=== PATIENT | male | born 1955 | race Caucasian/White ===

== ENCOUNTER 2021-03-02 13:18 | Outpatient (CLI) | payer MEDICARE, OTHER | END 2021-03-02 13:19 | disposition home or self-care (01) | LOC: CSHWCC 13:18 | PROVIDERS: ATTEND Nurse Practitioner Family | DX: L89.214 Pressure ulcer of right hip, stage 4 (principal); L89.224 Pressure ulcer of left hip, stage 4; E44.0 Moderate protein-calorie malnutrition; G82.21 Paraplegia, complete; T21.0 Burn of unspecified degree of trunk; T54.91XD Toxic effect of unspecified corrosive substance, accidental (unintentional), subsequent encounter; W01.198D Fall on same level from slipping, tripping and stumbling with subsequent striking against other object, subsequent encounter | CPT/HCPCS: 99213; G0463 ==

== ENCOUNTER 2021-07-08 09:31 | Outpatient (CLI) | payer OTHER | END 2021-07-08 09:32 | disposition home or self-care (01) | LOC: CSHWCC 09:31 | PROVIDERS: ATTEND Nurse Practitioner Family | DX: L89.154 Pressure ulcer of sacral region, stage 4 (principal); I12.9 Hypertensive chronic kidney disease with stage 1 through stage 4 chronic kidney disease, or unspecified chronic kidney disease; N18.30 Chronic kidney disease, stage 3 unspecified; D63.1 Anemia in chronic kidney disease; A41.9 Sepsis, unspecified organism; E44.0 Moderate protein-calorie malnutrition; F12.10 Cannabis abuse, uncomplicated; F32.9 Major depressive disorder, single episode, unspecified; G92 Toxic encephalopathy; R26.81 Unsteadiness on feet; W06.XXXD Fall from bed, subsequent encounter | CPT/HCPCS: 99213; G0463 ==

== ENCOUNTER 2021-09-29 09:42 | Outpatient (CLI) | payer OTHER | END 2021-09-29 09:43 | disposition home or self-care (01) | LOC: CSHWCC 09:42 | PROVIDERS: ATTEND Nurse Practitioner Family | DX: L89.224 Pressure ulcer of left hip, stage 4 (principal); L89.214 Pressure ulcer of right hip, stage 4; T54.91XD Toxic effect of unspecified corrosive substance, accidental (unintentional), subsequent encounter; E44.0 Moderate protein-calorie malnutrition; G82.21 Paraplegia, complete; W01.198D Fall on same level from slipping, tripping and stumbling with subsequent striking against other object, subsequent encounter | CPT/HCPCS: 99213; G0463 ==

== ENCOUNTER 2021-12-16 11:52 | Outpatient (CLI) | payer MEDICARE, OTHER | END 2021-12-16 11:53 | disposition home or self-care (01) | LOC: CSHWCC 11:52 | PROVIDERS: ATTEND Nurse Practitioner Family | DX: L89.214 Pressure ulcer of right hip, stage 4 (principal) ==

== ENCOUNTER 2022-03-24 12:58 | Outpatient (CLI) | payer MEDICARE, MEDICAID | END 2022-03-24 12:59 | disposition home or self-care (01) | LOC: CSHWCC 12:58 | PROVIDERS: ATTEND Nurse Practitioner Family | DX: L89.214 Pressure ulcer of right hip, stage 4 (principal) ==

== ENCOUNTER 2022-05-04 07:59 | Outpatient (CLI) | payer OTHER, MEDICAID, MEDICARE | END 2022-05-04 08:00 | disposition home or self-care (01) | LOC: CSHWCC 07:59 | PROVIDERS: ATTEND Nurse Practitioner Family | DX: L89.214 Pressure ulcer of right hip, stage 4 (principal) | CPT/HCPCS: 97139; G0463; 99213 ==

== ENCOUNTER 2022-05-13 09:09 | Outpatient (CLI) | payer OTHER, MEDICAID, MEDICARE | END 2022-05-13 09:10 | disposition home or self-care (01) | LOC: CSHWCC 09:09 | PROVIDERS: ATTEND Nurse Practitioner Family | DX: L89.214 Pressure ulcer of right hip, stage 4 (principal); S31.829D Unspecified open wound of left buttock, subsequent encounter | CPT/HCPCS: 99213; G0463 ==

== ENCOUNTER 2022-08-04 13:05 | Outpatient (CLI) | payer OTHER, MEDICAID | END 2022-08-04 13:06 | disposition home or self-care (01) | LOC: CSHWCC 13:05 | PROVIDERS: ATTEND Nurse Practitioner Family | DX: L89.214 Pressure ulcer of right hip, stage 4 (principal); S31.829D Unspecified open wound of left buttock, subsequent encounter ==

== ENCOUNTER 2022-09-28 13:23 | Outpatient (CLI) | payer OTHER | END 2022-09-28 13:24 | disposition home or self-care (01) | LOC: CSHWCC 13:23 | PROVIDERS: ATTEND Preventive Medicine Undersea and Hyperbaric Medicine | DX: L89.214 Pressure ulcer of right hip, stage 4 (principal) | CPT/HCPCS: 99213; G0463 ==

== ENCOUNTER 2023-01-25 14:49 | Outpatient (CLI) | payer OTHER | END 2023-01-25 14:50 | disposition home or self-care (01) | LOC: CSHWCC 14:49 | PROVIDERS: ATTEND Nurse Practitioner Family | DX: L89.214 Pressure ulcer of right hip, stage 4 (principal) | CPT/HCPCS: 97139; G0463; 99212 ==

== ENCOUNTER 2024-08-09 12:32 | Outpatient (CLI) | payer OTHER | END 2024-08-09 12:33 | disposition home or self-care (01) | LOC: CSHWCC 12:32 | PROVIDERS: ATTEND Nurse Practitioner Family | DX: L89.323 Pressure ulcer of left buttock, stage 3 (principal); G82.21 Paraplegia, complete | CPT/HCPCS: 11042 ==

== ENCOUNTER 2024-08-16 14:12 | Outpatient (CLI) | payer OTHER | END 2024-08-16 14:13 | disposition home or self-care (01) | LOC: CSHWCC 14:12 | PROVIDERS: ATTEND Nurse Practitioner Family | DX: L89.323 Pressure ulcer of left buttock, stage 3 (principal); G82.21 Paraplegia, complete | CPT/HCPCS: 11042; 99213; G0463 ==

== ENCOUNTER 2024-08-23 14:54 | Outpatient (CLI) | payer OTHER | END 2024-08-23 14:55 | disposition home or self-care (01) | LOC: CSHWCC 14:54 | PROVIDERS: ATTEND Nurse Practitioner Family | DX: L89.323 Pressure ulcer of left buttock, stage 3 (principal); G82.21 Paraplegia, complete | CPT/HCPCS: 99212; G0463 ==